=== PATIENT | male | born 1940 | race Caucasian/White ===

== ENCOUNTER → 2017-04-23 08:17 | Outpatient (CLI) | payer MEDICARE, OTHER, SELFPAY ==
[2017-04-23 10:04] LABS: Absolute Lymphocyte Count 1.48 X10^3/ul (0.83-4.51); Absolute Neutrophil Count 4.8 X10^3/uL (2.0-7.7); Basophil# 0.05 X10^3/uL; Basophil% 0.7 % (0-1); Eosinophil# 0.44 X10^3/uL; Eosinophils% 5.9 % (0-5); Hematocrit 50.4 % (40-54); Hemoglobin 16.9 g/dl (13.0-16.5); Lymphocyte # 1.48 X10^3/ul (4.0); Lymphocyte % 19.9 % (19-41); Mean Corp Hgb Conc 33.5 g/gl (32-36); Mean Corpuscular Hgb 30.3 pg (27.0-32.0); Mean Corpuscular Volume 90.3 fL (80-94); Mean Platelet Vol. 11.1 fl (6.2-12.0); Monocyte# 0.72 X10^3/uL; Monocyte% 9.7 % (0-10); Neutrophil # 4.75 X10^3/uL (2.7-7.7); Neutrophil % 63.7 % (47-70); Platelet Count 200 K/mm3 (150-450); RBC Distribution Width CV 13.5 % (11.6-14.6); RBC Distribution Width SD 44.7 fl (35.1-43.9); Red Blood Count 5.58 M/mm3 (4.6-6.2); White Blood Count 7.5 K/mm3 (4.4-11.0)
[2017-04-23 10:06] LABS: POSITIVE COUNT NO; POSITIVE DIFFERENTIAL NO; POSITIVE MORPHOLOGY NO
[2017-04-23 10:10] LABS: Color, Urine Yellow (Yellow); Glucose, Dipstick Normal (Normal); Ketone-Dipstick Negative (Negative); Leukocyte Esterase-Dipstick Negative /ul (Negative); Nitrite-Dipstick Negative (Negative); Occult Blood-Urine Negative /ul (Negative); Protein-Dipstick Negative (Negative); Urine Bilirubin Dipstick Negative (Negative); Urine Clarity Sl. Cloudy (Clear); Urine Urobilinogen Normal (Normal)
[2017-04-23 10:22] LABS: ALB/GLOB Ratio 1.1 RATIO (0.9-2.4); AST(SGOT) 18 U/L (15-37); Alanine Aminotransfer ALT/SGPT 24 U/L (12-78); Albumin, Serum 4.1 g/dL (3.4-5.0); Alkaline Phosphatase 56 U/L (45-117); Anion Gap 6 (5-15); BUN 17 mg/dL (7-18); BUN/Creat Ratio 13.9 RATIO (10-20); Calcium,Total 9.1 mg/dL (8.5-10.1); Chloride 105 mmol/L (98-107); Cholesterol 240 mg/dL (200); Creatinine, Serum 1.22 mg/dL (0.70-1.30); EST Glomerular Filtration Rate 61 mL/min (>60); Est Glom Filt Rate - Afr Amer 74 mL/min (>60); Globulin 3.6 g/dL (2.2-4.2); Glucose 95 mg/dL (70-110); High Density Lipoprotein 60 mg/dL; PSA,Total - Annual Screen 3.21 ng/mL (0.00-4.00); Potassium 4.1 mmol/L (3.5-5.1); Protein, Total 7.7 g/dL (6.4-8.2); Sodium Level 140 mmol/L (136-145); Triglycerides 218 mg/dL; Very Low Density Lipoprotein 44 mg/dL (5-40)
== END ==
PROVIDERS: Family Provider Family Medicine; PCP Family Medicine; Visit Provider Family Medicine
DX: Z00.00 Encounter for general adult medical examination without abnormal findings (principal); Z12.5 Encounter for screening for malignant neoplasm of prostate; E78.5 Hyperlipidemia, unspecified; Z79.82 Long term (current) use of aspirin
CPT/HCPCS: 36415; 80053; 80061; 81002; 84153; 85025; G0103

== ENCOUNTER → 2018-09-03 | Outpatient (CLI) | payer MEDICARE, OTHER, SELFPAY ==
[2016-10-10 17:01] VITALS: BMI 22.6
[2018-09-03 12:48] LABS: Absolute Lymphocyte Count 1.28 X10^3/ul (0.83-4.51); Absolute Neutrophil Count 4.4 X10^3/uL (2.0-7.7); Basophil# 0.04 X10^3/uL; Basophil% 0.6 % (0-1); Eosinophil# 0.36 X10^3/uL; Eosinophils% 5.3 % (0-5); Hematocrit 48.8 % (40-54); Hemoglobin 16.1 g/dl (13.0-16.5); Lymphocyte # 1.28 X10^3/ul (4.0); Lymphocyte % 18.7 % (19-41); Mean Corpuscular Hgb 29.4 pg (27.0-32.0); Mean Corpuscular Volume 89.2 fL (80-94); Mean Platelet Vol. 10.7 fl (6.2-12.0); Monocyte# 0.74 X10^3/uL; Monocyte% 10.8 % (0-10); Neutrophil # 4.42 X10^3/uL (2.7-7.7); Neutrophil % 64.5 % (47-70); Platelet Count 189 K/mm3 (150-450); RBC Distribution Width SD 46.1 fl (35.1-43.9); Red Blood Count 5.47 M/mm3 (4.6-6.2); White Blood Count 6.9 K/mm3 (4.4-11.0)
[2018-09-03 12:53] LABS: POSITIVE COUNT NO; POSITIVE DIFFERENTIAL NO; POSITIVE MORPHOLOGY NO
[2018-09-03 13:13] LABS: ALB/GLOB Ratio 1.1 RATIO (0.9-2.4); AST(SGOT) 14 U/L (15-37); Alanine Aminotransfer ALT/SGPT 19 U/L (16-61); Albumin, Serum 3.7 g/dL (3.2-5.0); Alkaline Phosphatase 60 U/L (45-117); Anion Gap 4 (5-15); BUN 24 mg/dL (7-18); BUN/Creat Ratio 23.3 RATIO (10-20); Calcium,Total 9.1 mg/dL (8.5-10.1); Chloride 109 mmol/L (98-107); Cholesterol 205 mg/dL (200); Creatinine, Serum 1.03 mg/dL (0.70-1.30); EST Glomerular Filtration Rate 74 mL/min (>60); Est Glom Filt Rate - Afr Amer 89 mL/min (>60); Globulin 3.5 g/dL (2.2-4.2); Glucose 95 mg/dL (74-106); High Density Lipoprotein 61 mg/dL; Potassium 4.4 mmol/L (3.5-5.1); Protein, Total 7.2 g/dL (6.4-8.2); Sodium Level 141 mmol/L (136-145); Triglycerides 138 mg/dL; Very Low Density Lipoprotein 28 mg/dL (5-40)
== END | disposition home or self-care (01) ==
PROVIDERS: Family Provider Family Medicine; PCP Family Medicine; Visit Provider Family Medicine
DX: I67.9 Cerebrovascular disease, unspecified (principal); R25.1 Tremor, unspecified; E78.5 Hyperlipidemia, unspecified; Z51.81 Encounter for therapeutic drug level monitoring
CPT/HCPCS: 36415; 80053; 80061; 85025

== ENCOUNTER → 2019-09-15 | Outpatient (CLI) | payer MEDICARE, OTHER, SELFPAY ==
[2016-10-10 17:01] VITALS: BMI 22.6
[2019-09-15 10:11] LABS: Absolute Lymphocyte Count 1.41 X10^3/uL (0.83-4.51); Absolute Neutrophil Count 4.3 X10^3/uL (2.0-7.7); Basophil# 0.08 X10^3/uL; Basophil% 1.2 % (0-1); Eosinophil# 0.33 X10^3/uL; Eosinophils% 4.8 % (0-5); Hemoglobin 15.4 g/dL (13.0-16.5); Lymphocyte # 1.41 X10^3/ul (4.0); Lymphocyte % 20.7 % (19-41); Mean Corp Hgb Conc 32.1 g/dL (32-36); Mean Corpuscular Hgb 29.9 pg (27.0-32.0); Mean Corpuscular Volume 93.2 fL (80-94); Mean Platelet Vol. 10.9 fl (6.2-12.0); Monocyte# 0.68 X10^3/uL; NRBC Flagged by Analyzer 0 % (0-5); Neutrophil # 4.31 X10^3/uL (2.7-7.7); Neutrophil % 63.2 % (47-70); Platelet Count 193 K/mm3 (150-450); RBC Distribution Width CV 13.1 % (11.6-14.6); RBC Distribution Width SD 44.5 fl (35.1-43.9); Red Blood Count 5.15 M/mm3 (4.6-6.2); White Blood Count 6.8 K/mm3 (4.4-11.0)
[2019-09-15 10:27] LABS: ALB/GLOB Ratio 1.1 RATIO (0.9-2.4); AST(SGOT) 13 U/L (15-37); Alanine Aminotransfer ALT/SGPT 19 U/L (16-61); Albumin, Serum 3.8 g/dL (3.2-5.0); Alkaline Phosphatase 63 U/L (45-117); Anion Gap 6 (5-15); BUN 25 mg/dL (7-18); BUN/Creat Ratio 19.5 RATIO (10-20); Chloride 106 mmol/L (98-107); Cholesterol 218 mg/dL (200); Creatinine, Serum 1.28 mg/dL (0.70-1.30); EST Glomerular Filtration Rate 57 mL/min (>60); Est Glom Filt Rate - Afr Amer 69 mL/min (>60); Globulin 3.6 g/dL (2.2-4.2); Glucose 98 mg/dL (74-106); High Density Lipoprotein 59 mg/dL; PSA,Total - Annual Screen 3.98 ng/mL (0.00-4.00); Potassium 4.4 mmol/L (3.5-5.1); Protein, Total 7.4 g/dL (6.4-8.2); Sodium Level 140 mmol/L (136-145); Triglycerides 129 mg/dL; Very Low Density Lipoprotein 26 mg/dL (5-40)
== END | disposition home or self-care (01) ==
LOC: MTLAB 07:11
PROVIDERS: PCP Family Medicine; Referring Provider Family Medicine; Visit Provider Family Medicine
DX: Z00.01 Encounter for general adult medical examination with abnormal findings (principal); Z12.5 Encounter for screening for malignant neoplasm of prostate
CPT/HCPCS: 36415; 80053; 80061; 84153; 85025; G0103

== ENCOUNTER → 2020-08-06 08:50 | Outpatient (CLI) | payer MEDICARE, OTHER, SELFPAY ==
[2016-10-10 17:01] VITALS: BMI 22.6
--- NOTE | 2020-08-06 08:55 | RAD_ITS ---
STUDY: X-RAY - RIGHT SHOULDER REASON FOR EXAM: Male, 79 years old. PAIN TECHNIQUE: 4 view(s) of the shoulder. COMPARISON: Comparison is made with prior study dated 12/14/2015. FINDINGS: Normal glenohumeral articulation. Normal acromioclavicular joint. Normal acromion. Healed right midclavicular fracture with overriding of the fracture fragments. Normal humeral head and visualized proximal humerus. The soft tissue structures are unremarkable. Normal visualized pulmonary apex. RAD/Shoulder min 2 Views IMPRESSION: Healed right midclavicular fracture with overriding of the fracture fragments. Electronically Signed: Alek Mccarthy MD at 9:52 EDT , Service support ,
== END ==
PROVIDERS: PCP Family Medicine; Referring Provider Family Medicine; Visit Provider Family Medicine
DX: M25.511 Pain in right shoulder (principal)
CPT/HCPCS: 73030

== ENCOUNTER → 2021-08-26 | Outpatient (CLI) | payer MEDICARE, OTHER, SELFPAY ==
--- NOTE | 2021-08-26 09:50 | CDU_ITS ---
Reason For Study: rt carotid bruit Rt. Velocities/BP Lt. Velocities/BP Prox CCA 123.0/14.7 cm/sec. Prox CCA 115.8/13.9 cm/sec. Mid CCA 112.5/17.3 cm/sec. Mid CCA 117.0/18.8 cm/sec. Dist CCA 107.3/18.6 cm/sec. Dist CCA 103.5/16.3 cm/sec. Prox ICA 147.7/33.6 cm/sec. Prox ICA 104.8/28.6 cm/sec. Mid ICA 112.0/18.8 cm/sec. Mid ICA 87.6/20.0 cm/sec. Dist ICA 104.7/27.9 cm/sec. Dist ICA 63.9/15.6 cm/sec. Rt. ICA/CCA = 1.3. Lt. ICA/CCA = .9. Prox ECA 207.9/13.9 cm/sec. Prox ECA 96.2/7.7 cm/sec. Rt. Vert. 39.0/8.8 cm/sec. Lt. Vert. 45.8/13.9 cm/sec. Right Extracranial There is heterogeneous, smooth atherosclerotic plaque noted in the right common carotid artery. There is heterogeneous, irregular atherosclerotic plaque noted in the right internal carotid artery. There is homogeneous, smooth atherosclerotic plaque noted in the right external carotid artery. Antegrade flow is noted in the right vertebral artery. Left Extracranial There is homogeneous, smooth atherosclerotic plaque noted in the left common carotid artery. There is heterogeneous, irregular atherosclerotic plaque noted in the left internal carotid artery. There is heterogeneous, irregular atherosclerotic plaque noted in the left external carotid artery. Antegrade flow is noted in the left vertebral artery. Procedure Carotid Duplex [id number]. This is a Carotid Duplex examination using B-mode, color flow and specral Doppler. The exam was diagnostic. Exam performed in department. VL/Carotid Duplex Ultrasound Interpretation Summary The degree of stenosis in the right internal carotid artery appears to approach 50%. Mild (<50%) stenosis left extracranial internal carotid. Flow within the vertebral arteries is antegrade bilaterally. Elevated velocities in the right external carotid artery are sugge stive of stenosis >50%. Ordering Physician: Ej Rehman Performed By: Randal Quach RVT
== END | disposition home or self-care (01) ==
LOC: CVS 09:48
PROVIDERS: PCP Family Medicine; Visit Provider Family Medicine
DX: I65.21 Occlusion and stenosis of right carotid artery (principal)
CPT/HCPCS: 93880

== ENCOUNTER → 2022-02-04 | Outpatient (CLI) | payer MEDICARE, OTHER, SELFPAY ==
[2022-02-04 12:19] LABS: Absolute Lymphocyte Count 1.54 X10^3/uL (0.83-4.51); Absolute Neutrophil Count 4.2 X10^3/uL (2.0-7.7); Basophil# 0.07 X10^3/uL; Eosinophils% 5.8 % (0-5); Hematocrit 46.5 % (40-54); Hemoglobin 15.3 g/dL (13.0-16.5); Lymphocyte # 1.54 X10^3/ul (0.83-4.51); Lymphocyte % 22.4 % (19-41); Mean Corp Hgb Conc 32.9 g/dL (32-36); Mean Corpuscular Hgb 30.6 pg (27.0-32.0); Monocyte# 0.63 X10^3/uL; Monocyte% 9.2 % (0-10); NRBC Flagged by Analyzer 0 % (0-5); Neutrophil # 4.22 X10^3/uL (2.7-7.7); Neutrophil % 61.3 % (47-70); Platelet Count 178 K/mm3 (150-450); RBC Distribution Width CV 13.4 % (11.6-14.6); RBC Distribution Width SD 45.5 fl (35.1-43.9); White Blood Count 6.9 K/mm3 (4.4-11.0)
[2022-02-04 12:42] LABS: ALB/GLOB Ratio 1.2 RATIO (0.9-2.4); AST(SGOT) 13 U/L (15-37); Alanine Aminotransfer ALT/SGPT 15 U/L (16-61); Albumin, Serum 3.6 g/dL (3.2-5.0); Alkaline Phosphatase 61 U/L (45-117); Anion Gap 4 (5-15); BUN 19 mg/dL (7-18); BUN/Creat Ratio 17.9 RATIO (10-20); Calcium,Total 8.9 mg/dL (8.5-10.1); Chloride 108 mmol/L (98-107); Cholesterol 142 mg/dL (200); Creatinine, Serum 1.06 mg/dL (0.70-1.30); EST Glomerular Filtration Rate 71 mL/min (>60); Est Glom Filt Rate - Afr Amer 86 mL/min (>60); Globulin 3.1 g/dL (2.2-4.2); Glucose 114 mg/dL (74-106); High Density Lipoprotein 58 mg/dL; Potassium 3.9 mmol/L (3.5-5.1); Protein, Total 6.7 g/dL (6.4-8.2); Sodium Level 141 mmol/L (136-145); Triglycerides 131 mg/dL; Very Low Density Lipoprotein 26 mg/dL (5-40)
== END | disposition home or self-care (01) ==
LOC: BFHLAB 08:47
PROVIDERS: PCP Family Medicine; Visit Provider Family Medicine
DX: I65.21 Occlusion and stenosis of right carotid artery (principal)
CPT/HCPCS: 36415; 80053; 80061; 85025

== ENCOUNTER → 2022-06-20 | Outpatient (CLI) | payer MEDICARE, OTHER, SELFPAY | END | disposition home or self-care (01) | LOC: LABSPEC 16:24 | PROVIDERS: PCP Family Medicine; Visit Provider Family Medicine | DX: J06.9 Acute upper respiratory infection, unspecified (principal); Z20.822 Contact with and (suspected) exposure to COVID-19 | CPT/HCPCS: 87635; U0003; U0005 ==

== ENCOUNTER → 2022-08-11 | Outpatient (CLI) | payer MEDICARE, OTHER, SELFPAY ==
[2022-08-11 12:32] LABS: Absolute Lymphocyte Count 1.58 X10^3/uL (0.83-4.51); Absolute Neutrophil Count 4.1 X10^3/uL (2.0-7.7); Basophil# 0.07 X10^3/uL; Eosinophil# 0.37 X10^3/uL; Eosinophils% 5.4 % (0-5); Hematocrit 48.9 % (40-54); Hemoglobin 15.5 g/dL (13.0-16.5); Lymphocyte # 1.58 X10^3/ul (0.83-4.51); Lymphocyte % 23.3 % (19-41); Mean Corp Hgb Conc 31.7 g/dL (32-36); Mean Corpuscular Hgb 29.7 pg (27.0-32.0); Mean Corpuscular Volume 93.7 fL (80-94); Mean Platelet Vol. 11.1 fl (6.2-12.0); Monocyte# 0.69 X10^3/uL; Monocyte% 10.2 % (0-10); NRBC Flagged by Analyzer 0 % (0-5); Neutrophil # 4.07 X10^3/uL (2.7-7.7); Platelet Count 204 K/mm3 (150-450); RBC Distribution Width CV 13.9 % (11.6-14.6); RBC Distribution Width SD 48.7 fl (35.1-43.9); Red Blood Count 5.22 M/mm3 (4.6-6.2); White Blood Count 6.8 K/mm3 (4.4-11.0)
[2022-08-11 12:59] LABS: AST(SGOT) 16 U/L (15-37); Alanine Aminotransfer ALT/SGPT 21 U/L (16-61); Albumin, Serum 3.6 g/dL (3.2-5.0); Alkaline Phosphatase 73 U/L (45-117); Anion Gap 6 (5-15); BUN 21 mg/dL (7-18); BUN/Creat Ratio 20.6 RATIO (10-20); Calcium,Total 9.1 mg/dL (8.5-10.1); Chloride 108 mmol/L (98-107); Cholesterol 184 mg/dL (200); Creatinine, Serum 1.02 mg/dL (0.70-1.30); EST Glomerular Filtration Rate 74 mL/min (>60); Est Glom Filt Rate - Afr Amer 90 mL/min (>60); Globulin 3.5 g/dL (2.2-4.2); Glucose 93 mg/dL (74-106); High Density Lipoprotein 62 mg/dL; Potassium 4.1 mmol/L (3.5-5.1); Protein, Total 7.1 g/dL (6.4-8.2); Sodium Level 141 mmol/L (136-145); Triglycerides 114 mg/dL; Very Low Density Lipoprotein 23 mg/dL (5-40)
== END | disposition home or self-care (01) ==
LOC: LAB.FUTURE 08:46 → BFHLAB 08:47
PROVIDERS: PCP Family Medicine; Referring Provider Family Medicine; Visit Provider Family Medicine
DX: I65.21 Occlusion and stenosis of right carotid artery (principal)
CPT/HCPCS: 36415; 80053; 80061; 85025

== ENCOUNTER 2022-11-15 09:44 | Emergency (ER) | payer OTHER, MEDICARE, SELFPAY ==
[2022-11-15 09:45] VITALS: BP 128/72; PULSE 71; RESP 18; TEMP 36.2; O2SAT 99; BMI 18.5
--- NOTE | 2022-11-15 09:53 | ED.RN ---
NO DRUG TESTING REQUIRED, TESTING FOR DRIVERS ONLY
--- NOTE | 2022-11-15 10:20 | EDS_ITS ---
HPI <ATILIO Santana - Last Filed: 11/15/22 11:37> History of Present Illness Chief Complaint: Fall Narrative Narrative: Patient presents with a workplace injury. 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 He did not realize the customers stoop down beside him and when he stood up and turned to walk he stumbled against them and fell onto his right arm and right rib cage. No head injury or LOC. He has skin tears on his right arm. He is not on blood thinners. PFSH <ATILIO Santana - Last Filed: 11/15/22 11:37> [facility] Medical History (Updated 11/15/22 @ 11:28 by ATILIO Santana) Pectus excavatum TIA (transient ischemic attack) Home Medications acetaminophen 325 mg tablet (Tylenol) 650 mg PO Q4H PRN PRN Pain 08/24/15 [History Last Taken Unknown] ranitidine HCl 75 mg tablet (Zantac) 75 mg PO BID 08/24/15 [History Last Taken 10/10/16 08:00] acidophilus 25 million cell-pectin, citrus 100 mg tablet 1 ea PO BID #10 tabs 10/10/16 [Rx Last Taken Unknown] cefadroxil 500 mg capsule 500 mg PO BID ##10 10/10/16 [Rx Last Taken Unknown] oxycodone-acetaminophen 5 mg-325 mg tablet 1 - 2 tab PO 4X/DAY PRN PRN Pain #40 tabs 10/10/16 [Rx Last Taken Unknown] Allergy/AdvReac Type Severity Reaction Status Date / Time No Known Allergies Allergy Verified 11/29/15 09:35 Social History Smoking Status: Never smoker ROS <ATILIO Santana - Last Filed: 11/15/22 11:37> ROS ED ROS Narrative CVS: Negative for chest pain. Respiratory: Negative for shortness of breath. GI: Negative for nausea, vomiting. Neuro: Negative for motor/sensory dysfunction. Skin: Positive for skin tears. Musc: Negative for joint pain, swelling. EXAM <ATILIO Santana - Last Filed: 11/15/22 11:37> Physical Exam Narrative Exam Narrative: CONST: Patient sitting in no acute distress. EYES: Normal inspection. NECK: Normal inspection. RESP: No respiratory distress, CTAB. Pectus excavatum, slight tenderness right mid/lateral rib cage with no deformity or crepitus. CVS: Regular rate and rhythm, no murmur, no gallop. ABD: Soft and nontender, no guarding or rebound. SKIN: Small skin tears extending down right dorsal forearm already well approximated. No bleeding or foreign body. EXTREMITIES: Normal appearance, full ROM upper extremities with no bony tenderness, 2+ radial pulses. No tenderness of the lower extremities, 2+ DP pulses. NEURO: Oriented x4. PSYCH: Normal affect. Const Vital Signs: 11/15/22 09:45 11/15/22 10:17 Temperature 97.1 F L Temperature Source Temporal Pulse Rate 71 Respiratory Rate 18 Respiratory Effort Normal Non-Labored Respiratory Depth Normal Respiratory Pattern Normal Blood Pressure 128/72 H Blood Pressure Mean 90 Pulse Ox 99 Oxygen Delivery Method Room Air <Dr. Scout Roberts DO - Last Filed: 11/15/22 13:04> Physical Exam Const Vital Signs: 11/15/22 09:45 11/15/22 10:17 Temperature 97.1 F L Temperature Source Temporal Pulse Rate 71 Respiratory Rate 18 Respiratory Effort Normal Non-Labored Respiratory Depth Normal Respiratory Pattern Normal Blood Pressure 128/72 H Blood Pressure Mean 90 Pulse Ox 99 Oxygen Delivery Method Room Air [facility] <ATILIO Santana - Last Filed: 11/15/22 11:37> [facility] Narrative Medical decision making narrative: History gathered from: Patient and Patient had a mechanical fall at work sustaining right arm skin tears and right rib cage injury. He appears well and nontoxic. Vital signs within normal limits. There are superficial skin tears on the right arm that were cleansed and dressed. Tetanus updated today. There is no bony tenderness to the extremities and they are neurovascularly intact. He is slightly tender over the right rib cage with no crepitus. Normal heart and lung sounds. He does have notable pectus excavatum. ED attending interpretation of right rib series x- rays show no evidence of displaced rib fracture or pneumothorax. Patient declined pain medication and I discussed she can use [id number] Tylenol and lidocaine patches. He was given workplace restrictions and will follow-up with occupational health and was discharged in stable condition. Differential: Rib contusions versus fracture, pneumothorax Radiography Diagnostic Testing: Clinical Impression(s) from Imaging Studies Ribs w/Chest X-Ray 11/15/22 10:45 IMPRESSION: RIBS: Normal x-ray examination of the ribs. CHEST: Degenerative changes, as described above. No demonstrated acute cardiopulmonary process. Electronically Signed: Cristi Montes MD at 11:20 EDT Reading Location ID and State: [address] [place] [address] , Service support , <Dr. Scout Roberts, DO - Last Filed: 11/15/22 13:04> [facility] MDM Narrative Medical decision making narrative: History gathered from: Patient and Patient had a mechanical fall at work sustaining right arm skin tears and right rib cage injury. He appears well and nontoxic. Vital signs within normal limits. There are superficial skin tears on the right arm that were cleansed and dressed. Tetanus updated today. There is no bony tenderness to the extremities and they are neurovascularly intact. He is slightly tender over the right rib cage with no crepitus. Normal heart and lung sounds. He does have notable pectus excavatum. ED attending interpretation of right rib series x-rays show no evidence of displaced rib fracture or pneumothorax. Patient declined pain medication and I discussed she can use [id number] Tylenol and lidocaine patches. He was given workplace restrictions and will follow-up with occupational health and was discharged in stable condition. Differential: Rib contusions versus fracture, pneumothorax This patient was seen with a PA/HEAD CAGER Individually assessed they patient including history and physical. I have reviewed everything on the chart that is available and agree with the documentation provided by the PA/HEAD CAGER including discussion about the assessment, treatment plan, discussion, and return precautions. Patient presenting with mild right rib pain and some superficial abrasions over the right forearm. He declines any analgesia. He states his pain is only mild. This is a workers comp claim. We did obtain right rib series and on my interpretation is no acute fracture or evidence of pneumothorax. Superficial laceration/abrasions on the right forearm to be cleaned and dressed. These do not need to be sutured. Radiography Diagnostic Testing: Clinical Impression(s) from Imaging Studies Ribs w/Chest X-Ray 11/15/22 10:45 IMPRESSION: RIBS: Normal x-ray examination of the ribs. CHEST: Degenerative changes, as described above. No demonstrated acute cardiopulmonary process. Electronically Signed: Cristi Montes MD at 11:20 EDT , Discharge Plan Triage Chief Complaint: Fall ED Midlevel Provider: Aisha Lozada ED Provider: Scout Roberts Dx/Rx/DC Orders Clinical Impression: Contusion of rib on right side, Skin tear of right upper extremity Instructions: ED Laceration Small or ..., ED Bruise, Rib Prescriptions: No Action acetaminophen [Tylenol] 325 MG tablet 650 mg PO Q4H PRN PRN (Reason: Pain) ranitidine HCl [Zantac 75] 75 MG tablet 75 mg PO BID cefadroxil 500 MG capsule 500 mg PO BID Qty: 10 0RF oxycodone-acetaminophen 1 TABLET tablet 1 - 2 tab PO 4X/DAY PRN PRN (Reason: Pain) Qty: 40 0RF acidophilus-pectin, citrus 1 EACH tablet 1 ea PO BID Qty: 10 0RF Primary Care Provider: Ej Rehman Referrals: Ej Rehman DO [Primary Care Provider] - Activity Restrictions/Additional Instructions: Gently cleanse skin tears with soap and water and pat dry. For the next day or 2 you can cover with bacitracin and a bandage after that leave open to air. If signs of infection develop be reevaluated. Your x-ray showed no evidence of rib fractures and I recommend taking Tylenol every 6 hours and using lidocaine patches as needed. It can take several weeks to feel improved. Disposition Disposition: Home, Self Care Discharge Date/Time: 11/15/22 12:00
--- NOTE | 2022-11-15 10:45 | RAD_ITS ---
STUDY: X-RAY - UNILATERAL RIBS ( RIGHT ) WITH CHEST REASON FOR EXAM: Male, 81 years old. pain after fall TECHNIQUE - RIBS: 4 view(s) of the ribs. TECHNIQUE - CHEST: Single PA view of the chest. COMPARISON: None. FINDINGS - RIBS: Normal visualized ribs without a demonstrated fracture. No demonstrated pneumothorax or pleural effusion. FINDINGS - CHEST: There are chronic appearing to moderate interstitial fibrotic changes of the lungs. There is no demonstrated pleural abnormality. Normal size heart. Normal mediastinum and maximiliano. Normal visualized pulmonary arteries. There is atherosclerotic calcification of the aortic arch with tortuosity. There are diffuse degenerative changes of the visualized thoracic spine. Normal visualized ribs, clavicles, and shoulders. There is no demonstrated abnormality of the visualized soft tissue structures of the upper abdomen. RAD/Ribs Uni Min 3V w/PA Chest IMPRESSION: RIBS: Normal x-ray examination of the ribs. CHEST: Degenerative changes, as described above. No demonstrated acute cardiopulmonary process. Electronically Signed: Cristi Montes MD at 11:20 EDT ,
[2022-11-15] MEDS: Diphth,Pertuss(Acell),Tet Vac 0.5 ML Vial IM (11:41)
== END 2022-11-15 12:00 | disposition home or self-care (01) ==
PROVIDERS: Emergency Provider Student in an Organized Health Care Education/Training Program; PCP Family Medicine; Visit Provider Student in an Organized Health Care Education/Training Program
DX: S41.111A Laceration without foreign body of right upper arm, initial encounter (principal); S20.211A Contusion of right front wall of thorax, initial encounter; Q67.6 Pectus excavatum; Z23 Encounter for immunization; Y99.0 Civilian activity done for income or pay
CPT/HCPCS: 71101; 90471; 90715; 99282

== ENCOUNTER → 2022-11-17 | Outpatient (CLI) | payer OTHER, SELFPAY ==
--- NOTE | 2022-11-17 13:37 | RAD_ITS ---
STUDY: X-RAY - UNILATERAL RIBS ( RIGHT ) WITH CHEST REASON FOR EXAM: Male, 81 years old. Right anterior rib pain following injury. TECHNIQUE - RIBS: 4 view(s) of the ribs. TECHNIQUE - CHEST: Single PA view of the chest. COMPARISON: Comparison is made with prior examination November 15, 2022. FINDINGS - RIBS: Normal visualized ribs without a demonstrated fracture. FINDINGS - CHEST: Stable increased interstitial markings especially at the lung bases suggests probable bibasilar scarring. There is no demonstrated pleural abnormality. Normal size heart. Normal mediastinum and maximiliano. Normal visualized pulmonary arteries. There is atherosclerotic calcification of the aortic arch with tortuosity. There are degenerative changes of the visualized thoracic spine. Normal visualized ribs, clavicles, and shoulders. There is no demonstrated abnormality of the visualized soft tissue structures of the upper abdomen. RAD/Ribs Uni Min 3V w/PA Chest IMPRESSION: RIBS: Normal x-ray examination of the ribs. CHEST: Stable increased markings at the lung bases suggestive of bibasilar scarring. Electronically Signed: Alek Mccarthy MD at 14:16 EDT ,
== END | disposition home or self-care (01) ==
LOC: MTRAD 13:32
PROVIDERS: PCP Family Medicine; Referring Provider Physician Assistant; Visit Provider Physician Assistant
DX: R07.81 Pleurodynia (principal)
CPT/HCPCS: 71101

== ENCOUNTER → 2023-01-30 | Outpatient (CLI) | payer MEDICARE, OTHER, SELFPAY ==
--- NOTE | 2023-01-30 15:12 | RAD_ITS ---
STUDY: X-RAY CHEST REASON FOR EXAM: Male, 82 years old. COUGH X1 MONTH TECHNIQUE: PA and lateral views of the chest. COMPARISON: November 17, 2022 chest x-ray FINDINGS: There is a pattern of interstitial thickening in the lung bases suggesting fibrosis. There are scattered areas of emphysematous change. There is no demonstrated pleural abnormality. Normal size heart. Normal mediastinum and maximiliano. Normal visualized pulmonary arteries. There is atherosclerotic calcification of the aortic arch with tortuosity. Normal visualized thoracic spine. Normal visualized ribs, clavicles, and shoulders. There is no demonstrated abnormality of the visualized soft tissue structures of the upper abdomen. RAD/Chest PA and Lateral IMPRESSION: Findings are consistent with underlying chronic lung disease. Persistent trace thickening of the right minor fissure. No visualized acute focal infiltrate. Could consider follow-up CT scan of the chest. Electronically Signed: Kami Merida MD at 3:44 EDT ,
== END | disposition home or self-care (01) ==
LOC: MTRAD 15:11
PROVIDERS: PCP Family Medicine; Referring Provider Family Medicine; Visit Provider Family Medicine
DX: R05.9 Cough, unspecified (principal)
CPT/HCPCS: 71046

== ENCOUNTER → 2023-02-09 | Outpatient (CLI) | payer MEDICARE, OTHER, SELFPAY ==
[2023-02-09 12:07] LABS: Absolute Lymphocyte Count 1.29 X10^3/uL (0.83-4.51); Absolute Neutrophil Count 5.3 X10^3/uL (2.0-7.7); Basophil# 0.08 X10^3/uL; Eosinophil# 0.41 X10^3/uL; Eosinophils% 5.2 % (0-5); Hematocrit 48.5 % (40-54); Hemoglobin 15.4 g/dL (13.0-16.5); Lymphocyte # 1.29 X10^3/ul (0.83-4.51); Lymphocyte % 16.4 % (19-41); Mean Corp Hgb Conc 31.8 g/dL (32-36); Mean Corpuscular Hgb 29.2 pg (27.0-32.0); Mean Corpuscular Volume 91.9 fL (80-94); Mean Platelet Vol. 10.5 fl (6.2-12.0); Monocyte# 0.79 X10^3/uL; NRBC Flagged by Analyzer 0 % (0-5); Neutrophil % 67.3 % (47-70); Platelet Count 213 K/mm3 (150-450); RBC Distribution Width CV 13.3 % (11.6-14.6); RBC Distribution Width SD 45.4 fl (35.1-43.9); Red Blood Count 5.28 M/mm3 (4.6-6.2); White Blood Count 7.9 K/mm3 (4.4-11.0)
[2023-02-09 12:35] LABS: ALB/GLOB Ratio 0.9 RATIO (0.9-2.4); AST(SGOT) 14 U/L (15-37); Alanine Aminotransfer ALT/SGPT 21 U/L (16-61); Albumin, Serum 3.4 g/dL (3.2-5.0); Alkaline Phosphatase 85 U/L (45-117); Anion Gap 3 (5-15); BUN 21 mg/dL (7-18); BUN/Creat Ratio 18.1 RATIO (10-20); Calcium,Total 9.1 mg/dL (8.5-10.1); Chloride 108 mmol/L (98-107); Cholesterol 179 mg/dL (200); Creatinine, Serum 1.16 mg/dL (0.70-1.30); EST Glomerular Filtration Rate 64 mL/min (>60); Est Glom Filt Rate - Afr Amer 77 mL/min (>60); Globulin 3.9 g/dL (2.2-4.2); Glucose 85 mg/dL (74-106); High Density Lipoprotein 57 mg/dL; Potassium 4.8 mmol/L (3.5-5.1); Protein, Total 7.3 g/dL (6.4-8.2); Sodium Level 137 mmol/L (136-145); Triglycerides 120 mg/dL; Very Low Density Lipoprotein 24 mg/dL (5-40)
== END | disposition home or self-care (01) ==
LOC: BFHLAB 08:39
PROVIDERS: PCP Family Medicine; Referring Provider Family Medicine; Visit Provider Family Medicine
DX: I65.21 Occlusion and stenosis of right carotid artery (principal); Z51.81 Encounter for therapeutic drug level monitoring
CPT/HCPCS: 36415; 80053; 80061; 85025

== ENCOUNTER → 2023-02-13 | Outpatient (CLI) | payer MEDICARE, OTHER, SELFPAY ==
--- NOTE | 2023-02-13 13:40 | CT_ITS ---
STUDY: CT CHEST WITH CONTRAST REASON FOR EXAM: Male, 82 years old. PERSISTENT COUGH, POSSIBLE FIBROSIS ON XRAY RADIATION DOSAGE (If Supplied By Facility): CTDIvol = ( 10.40 ) mGy, DLP = ( 223.36 ) mGycm TECHNIQUE: Transaxial imaging was performed following intravenous administration of IV 75mL Isovue-370. Multiplanar coronal and sagittal images were reformatted. Individualized dose optimization techniques were used for this CT. COMPARISON: Comparison is made with prior chest radiograph done earlier in the day. FINDINGS: CHEST Tiny hypodense nodules are seen in the right lobe of the thyroid. Increased interstitial markings in both upper and lower lobes with evidence of the subpleural blebs and honeycombing. There is also evidence of a scarring in both lung apices. Findings are suggestive of a chronic interstitial fibrosis. There is no demonstrated pleural abnormality. There are calcifications of the coronary arteries. Normal mediastinum. Normal hilar regions. Normal unenhanced pulmonary arteries. There is atherosclerotic calcification of the aortic arch. There is demineralization of the thoracic spine. Increased kyphosis. There is no demonstrated abnormality of the visualized upper abdomen. CT/Chest WITH Contrast IMPRESSION: Findings in keeping with chronic interstitial fibrosis and the honeycombing. Electronically Signed: Alek Mccarthy MD at 15:00 EDT ,
--- NOTE | 2023-02-14 07:00 | PFT ---
INTRODUCTION: The patient is an 82-year-old male who presents for pulmonary function studies secondary to a diagnosis of chronic cough. Respiratory therapy reported that acceptability criteria for testing was not met despite the patient's best efforts. INTERPRETATION: Forced expiration spirometry demonstrates no evidence of a large airways obstructive ventilatory defect. There was no significant response to aerosolized bronchodilators. Body plethysmography was performed and revealed a decreased TLC to 4.98 L, 68% of predicted, indicative of a moderate restrictive ventilatory impairment. Diffusing capacity by single breath CO is reduced to 41% of predicted. IMPRESSION: Moderate restrictive ventilatory impairment with symmetric reduction in diffusion capacity. Results should be viewed with caution as acceptability criteria testing was not met, despite the patient's best efforts.
== END | disposition home or self-care (01) ==
LOC: CT 12:48
PROVIDERS: PCP Family Medicine; Referring Provider Family Medicine; Visit Provider Family Medicine
DX: R05.9 Cough, unspecified (principal); J84.10 Pulmonary fibrosis, unspecified
CPT/HCPCS: 71260; 94060; 94726; 94729; Q9967

== ENCOUNTER → 2023-03-03 | Outpatient (CLI) | payer MEDICARE, OTHER, SELFPAY ==
[2023-03-03 12:24] LABS: Erythrocyte Sedimentation Rate 4 mm/hr (0-20)
[2023-03-03 12:59] LABS: CRP < 2.90 mg/L (0.0-3.0); Rheumatoid Factor < 10.0 IU/mL (<15)
[2023-03-04 12:09] LABS: ANTINUCLEAR ANTIBODIES DIRECT Negative (Negative)
== END | disposition home or self-care (01) ==
LOC: BFHLAB 10:57
PROVIDERS: PCP Family Medicine; Visit Provider Family Medicine
DX: J84.10 Pulmonary fibrosis, unspecified (principal); M13.0 Polyarthritis, unspecified
CPT/HCPCS: 36415; 85652; 86038; 86140; 86225; 86235; 86431

== ENCOUNTER → 2023-03-20 | Outpatient (CLI) | payer MEDICARE, OTHER, SELFPAY ==
--- NOTE | 2023-03-20 09:05 | RAD_ITS ---
STUDY: X-RAY CHEST REASON FOR EXAM: Male, 82 years old. Cough. Known fibrosis. TECHNIQUE: Frontal and lateral views of the chest. COMPARISON: January 30, 2023 FINDINGS: Mild cardiomegaly with aortic tortuosity, aortic calcification, prominent central pulmonary arteries, diffuse interstitial prominence most marked in the right upper lobe, left upper lobe and left lower lobe with mild hyperinflation, all unchanged. No interval acute or emergent finding. No abnormality of the visualized soft tissue structures of the upper abdomen. RAD/Chest PA and Lateral IMPRESSION: Stable chest with findings compatible with patchy interstitial fibrosis. No acute or active cardiopulmonary disease. Electronically Signed: Jacobo Valverde MD at 10:58 EST ,
== END | disposition home or self-care (01) ==
LOC: MTRAD 09:03
PROVIDERS: PCP Family Medicine; Referring Provider Family Medicine; Visit Provider Family Medicine
DX: J06.9 Acute upper respiratory infection, unspecified (principal); J84.10 Pulmonary fibrosis, unspecified
CPT/HCPCS: 71046